=== PATIENT | male | born 1950 | race Two or more races ===

== ENCOUNTER 2018-12-27 18:31 | Emergency (ER) | payer OTHER, MEDICARE ==
[~2018-12-27] VITALS: Ht 175.3 cm; Wt 90.3 kg
[2018-12-27 18:47] VITALS: BP_SYST 129
--- NOTE | 2018-12-27 19:00 | NUR ---
Patient to ER bed 3 to gown for evaluation. Side rails up.
--- NOTE | 2018-12-27 19:10 | NUR ---
Pt is coming into the ED for 3rd digit finger which was crushed by car door. C/O c-chaped laceration. Denies n/v/d or fever. No other complaints/injuries noted. Will cont. to monitor.
[2018-12-27] MEDS ORDERED: BACITRACIN 1 GM OINT TP ONE (21:00)
[2018-12-27] MEDS ORDERED: LIDOCAINE 1% 10 MG/ML, 20 ML MDV IJ ONE (21:00)
[2018-12-27] MEDS ORDERED: DIPH-TET-PERTUS Vaccine 0.5 ML VIAL (ADACEL) IM ONE (21:00)
--- NOTE | 2018-12-27 21:00 | NUR ---
ER at bedside examining patient.
--- NOTE | 2018-12-27 21:00 | NUR ---
Vince dobson in ED - 12/27/18 at 2127 by [email or web address] Jose F Logan at bedside examining patient.
--- NOTE | 2018-12-27 21:27 | NUR ---
laceration repair kit at bedside.
--- NOTE | 2018-12-27 23:00 | NUR ---
Dr. Osorio at bedside performing laceration repair.
--- NOTE | 2018-12-27 23:14 | NUR ---
Dr. Osorio placed 7 sutures.
[2018-12-27 23:54] VITALS: BP_SYST 129
--- NOTE | 2018-12-27 23:54 | NUR ---
Patient given written and verbal discharge instructions and verbalizes understanding. ER MD Dr. Osorio discussed with patient the results and treatment provided. Patient in stable condition. ID arm band removed. Patient educated on pain management and to follow up with PMD. Pain Scale 0/10. Opportunity for questions provided and answered. Medication side effect fact sheet provided.
== END 2018-12-27 23:54 | disposition home or self-care (01) ==
LOC: SED 18:31
DX: S61.212A Laceration without foreign body of right middle finger without damage to nail, initial encounter (principal); W23.0XXA Caught, crushed, jammed, or pinched between moving objects, initial encounter; Y93.89 Activity, other specified; Y92.89 Other specified places as the place of occurrence of the external cause; Y99.8 Other external cause status
CPT/HCPCS: 12001; 73140; 90471; 90715; 99283; J2001

== ENCOUNTER 2022-09-17 06:48 | Day surgery (SDC) | payer OTHER, MEDICARE ==
[~2022-09-17] VITALS: Ht 175.3 cm; Wt 83.9 kg
[2022-09-17] MEDS ORDERED: SIMETHICONE 40 MG/0.6 ML ML ONE (07:24)
[2022-09-17] MEDS ORDERED: MIDAZOLAM HCL 5 MG/5 ML VIAL ONE (07:24)
[2022-09-17] MEDS ORDERED: fentaNYL CITRATE/PF 100 MCG/2 ML AMP ONE (07:24)
[2022-09-17 07:52] VITALS: O2SAT 96
[2022-09-17 10:00] VITALS: BP_SYST 137; PULSE 62; RESP 20
== END 2022-09-17 09:10 | disposition home or self-care (01) ==
LOC: SDS 06:48
PROVIDERS: ATTEND Internal Medicine
DX: R19.4 Change in bowel habit (principal); K52.9 Noninfective gastroenteritis and colitis, unspecified; I10 Essential (primary) hypertension; E11.9 Type 2 diabetes mellitus without complications; I25.2 Old myocardial infarction; J45.909 Unspecified asthma, uncomplicated; G47.33 Obstructive sleep apnea (adult) (pediatric); Z80.0 Family history of malignant neoplasm of digestive organs; Z87.891 Personal history of nicotine dependence; Z79.899 Other long term (current) drug therapy
CPT/HCPCS: 45380; 82962; 88305; 99152; G0378; J2250; J3010